=== PATIENT | female | born 1940 | race Caucasian/White ===

== ENCOUNTER 2019-10-20 09:27 | Outpatient (CLI) | payer MEDICARE, SELFPAY ==
--- NOTE | ~2019-10-20 | MM_ITS ---
EXAMINATION: MM screening carrie BI w ulcrecia HISTORY: Screening mammogram TECHNIQUE: Craniocaudal and mediolateral oblique 3-D tomosynthesis images were obtained and synthetic 2-D images were generated. CAD analysis was submitted and interpreted. COMPARISON: No prior mammogram is available for comparison at this institution. BREAST PARENCHYMAL COMPOSITION: There are scattered areas of fibroglandular density........ FINDINGS: There is no evidence of suspicious mass, calcification, or architectural distortion to sugg est malignancy in either breast. There has been no suspicious interval change. IMPRESSION: 1. No mammographic evidence of malignancy. 2. Recommend routine screening mammography in one year. BI-RADS Category 1: Negative Reviewed, dictated and finalized at location A.
== END 2019-10-20 09:28 | disposition home or self-care (01) ==
LOC: ANHIMG 09:32
PROVIDERS: PCP Internal Medicine; Visit Provider Internal Medicine
DX: Z12.31 Encounter for screening mammogram for malignant neoplasm of breast (principal)
CPT/HCPCS: 77063; 77067

== ENCOUNTER 2020-03-29 01:08 | Outpatient (CLI) | payer MEDICARE, SELFPAY ==
[2020-03-29 16:30] LABS: SARS-CoV-2 RNA PCR Negative
== END 2020-03-29 01:09 | disposition home or self-care (01) ==
LOC: ANHCOVIDDT 01:08
PROVIDERS: PCP Internal Medicine; Visit Provider Internal Medicine Gastroenterology
DX: Z01.812 Encounter for preprocedural laboratory examination (principal); Z20.828 Contact with and (suspected) exposure to other viral communicable diseases
CPT/HCPCS: 87635; C9803; U0003

== ENCOUNTER 2020-04-01 02:32 | Day surgery (SDC) | payer MEDICARE, SELFPAY ==
[2020-03-21 13:30] VITALS: BMI 24.5
[2020-04-01 07:23] VITALS: BP 146/82; PULSE 73; RESP 20; TEMP 37.1; O2SAT 98
[2020-04-01] MEDS: LACTATED RINGERS 1,000 ML 150 ML IV CONT (07:34)
--- NOTE | 2020-04-01 07:53 | P.HP_ITS ---
History of Present Illness History of Present Illness Consent: Risks, benefits, and alternatives have been discussed and questions answered. Patient agrees to proceed with procedure. Chief complaint: Hx Of Polyps Narrative: Roxanne Edgar is a 79 year old W female Referred for screening colonoscopy secondary history of colonic polyps. Last colonoscopy was over 5 years ago. Patient is asymptomatic and there is no family history of colon cancer. [facility] Surgical History Surgical History (Updated 04/01/20 @ 07:54 by Marcos Barclay MD) H/O hysterectomy for benign disease Status post surgical removal of malignant neoplasm of skin Social History Social History Living arrangements: with family Meds Home Medications and Allergies Home Medications Medication Instructions Recorded Confirmed Type levothyroxine 75 mcg PO DAILY 03/21/20 03/21/20 History Allergies Allergy/AdvReac Type Severity Reaction Status Date / Time No Known Allergies Allergy Verified 04/01/20 07:22 Vital Signs Vital Signs - 24 hr 04/01/20 07:23 Temperature 37.1 C Pulse Rate 73 Respiratory Rate 20 Blood Pressure 146/82 H Pulse Oximetry 98 Exam Const: Orientation/consciousness: patient oriented x3 Resp: Auscultation: clear to auscultation bilaterally Cardio: Rate: regular rate Rhythm: regular rhythm Heart sounds: no murmurs GI: GI Palp: Yes Soft to palpation, No Tenderness to palpation present (GI), Yes No hepatosplenomegaly present and No Palpable mass present Auscultation: normal bowel sounds Neuro: General: patient oriented x3 and no focal motor deficits Extrem: General: no pedal edema Assessment and Plan Additional Plan screening colonoscopy secondary history of colonic polyps
--- NOTE | 2020-04-01 08:00 | WPDANESEPPF ---
Anes - Initial Pre Proc Eval Procedure: Operation Date: 04/01/20 08:30 Proposed Procedures p Screening Colonoscopy - Marcos Barclay MD Date/Time: 04/01/20 08:00 Surgeon: Marcos Barclay MD Pre Op Diagnosis: Hx Of Polyps Patient Data Age: 79 Gender: F Height: 5 ft 4 in Weight: 64.1 kg Last Vital Signs Temp 98.7 F 04/01/20 07:23 Pulse 73 04/01/20 07:23 Resp 20 04/01/20 07:23 BP 146/82 H 04/01/20 07:23 Pulse Ox 98 04/01/20 07:23 Allergies Allergy/AdvReac Type Severity Reaction Status Date / Time No Known Allergies Allergy Verified 04/01/20 07:22 Home Medications Medication Instructions Recorded Confirmed Type levothyroxine 75 mcg PO DAILY 03/21/20 03/21/20 History Patient hx anesthesia problems: none Family hx anesthesia problems: none [facility] Past Medical History Medical History (Updated 04/01/20 @ 07:57 by Ernesto Lindsey MD) GERD (gastroesophageal reflux disease) Hypothyroid Surgical History Surgical History (Updated 04/01/20 @ 07:54 by Marcos Barclay MD) H/O hysterectomy for benign disease Status post surgical removal of malignant neoplasm of skin Social History Social History Living arrangements: with family Anes - Eval Final PreProcedure Day of Procedure 04/01/20 08:00 Patient weight: normal Heart: regular rate and rhythm Lungs: clear to auscultation Airway: Mallampati scale class II Neurological: alert and oriented Last oral intake: >/= 8 hours ASA classification: II Emergent: no Anesthetic plan: proceed Anesthesia type and monitoring: general GIVS and standard monitoring Informed Consent: The patient's anesthetic plan and its attendant risks and benefits were discussed with the patient/family/POA. Questions were solicited and answers provided to the satisfaction of the patient/family/POA.
[2020-04-01 08:55] VITALS: BP 120/74; PULSE 78; RESP 12; O2SAT 100
[2020-04-01 09:05] VITALS: BP 114/68; PULSE 75; RESP 18; O2SAT 100
[2020-04-01 09:15] VITALS: BP 122/66; PULSE 76; RESP 21; O2SAT 100
== END 2020-04-01 09:35 | disposition home or self-care (01) ==
PROVIDERS: PCP Internal Medicine; Visit Provider Internal Medicine Gastroenterology
PROC: 0DJD8ZZ Inspection of Lower Intestinal Tract, Via Natural or Artificial Opening Endoscopic (ICD-10-PCS; CPT 45378; principal; 2020-04-01 08:30)
DX: Z12.11 Encounter for screening for malignant neoplasm of colon (principal); K21.9 Gastro-esophageal reflux disease without esophagitis; E03.9 Hypothyroidism, unspecified; Z85.828 Personal history of other malignant neoplasm of skin; D12.2 Benign neoplasm of ascending colon; D12.5 Benign neoplasm of sigmoid colon; K57.30 Diverticulosis of large intestine without perforation or abscess without bleeding; K64.4 Residual hemorrhoidal skin tags
CPT/HCPCS: 45380; 45385; 88305; J2704; J7120

== ENCOUNTER 2020-12-09 07:42 | Outpatient (CLI) | payer MEDICARE, SELFPAY ==
--- NOTE | ~2020-12-09 | MM_ITS ---
EXAMINATION: MM screening carrie BI w lucrecia HISTORY: Screening mammogram TECHNIQUE: Craniocaudal and mediolateral oblique 3-D tomosynthesis images were obtained and synthetic 2-D images were generated. CAD analysis was submitted and interpreted. COMPARISON: 10/20/2019, 09/15/2018, 07/28/2017 BREAST PARENCHYMAL COMPOSITION: There are scattered areas of fibroglandular density. FINDINGS: Scattered benign-appearing calcifications are present. There is no evidence of suspicious m ass, calcification, or architectural distortion to suggest malignancy in either breast. There has bee n no suspicious interval change. IMPRESSION: 1. No mammographic evidence of malignancy. 2. Recommend routine screening mammography while the patient remains in good health. BI-RADS Category 2: Benign finding(s). Reviewed, dictated and finalized at location A. IMPRESSION: 1. No mammographic evidence of malignancy. 2. Recommend routine screening mammography while the patient remains in good he alth. BI-RADS Category 2: Benign finding(s).
--- NOTE | ~2020-12-09 | DEXA_ITS ---
Bone Density Report Name: Roxanne Edgar Age: 80 Sex: Female Ethnicity: White Date of : 1940 Indication: postmenopausal osteoporosis; monitoring treatment; height loss; hysterectomy; Referring Provider: SAMMIE, ALLISON Zhang Study: Bone densitometry was performed. Exam Date: December 09, 2020 Accession number: [id number] Bone Density: Region BMD T-score Z-score Classification AP Spine (L1, L2, L3) 0.713 -2.8 -0.1 Osteoporosis Femoral Neck (Left) 0.667 -1.6 0.7 Osteopenia Total Hip (Left) 0.728 -1.8 0.3 Osteopenia Total Hip Bilateral Avg 0.722 -1.9 0.3 Osteopenia Femoral Neck (Right) 0.597 -2.3 0.1 Osteopenia Total Hip (Right) 0.715 -1.9 0.2 Osteopenia World Health Organization criteria for BMD impression classify patients as: Normal (T-score at or above -1.0), Osteopenia (T-score between -1.0 and -2.5), or Osteoporosis (T-score at or below -2.5). 10-year Fracture Risk: FRAX not reported because: Some T-score for Spine Total or Hip Total or Femoral Neck at or below -2.5 Treated for osteoporosis Previous Exams: Region Exam Age BMD T-score BMD Change BMD Change Date g/cm2 vs Baseline vs Previous AP Spine(L1, L2, L3) 12/09/2020 80 0.713 -2.8 0.043(6.4%)# -0.006(-0.8%) 07/09/2016 76 0.719 -2.7 0.048(7.2%)# 0.017(2.5%) 03/05/2014 73 0.702 -2.9 0.031(4.6%)# -0.008(-1.1%)# 02/15/2012 71 0.710 -2.8 0.039(5.8%)# 0.012(1.7%)# 02/10/2010 69 0.698 -2.9 0.027(4.0%)* 0.023(3.5%)* 01/24/2008 67 0.675 -3.1 0.004(0.6%) -0.001(-0.2%) 05/27/2005 65 0.676 -3.1 0.005(0.8%) 0.005(0.8%) 01/17/2004 63 0.671 -3.2 Total Hip(Left) 12/09/2020 80 0.728 -1.8 0.014(2.0%)# -0.027(-3.5%) 09/15/2018 78 0.755 -1.5 0.041(5.7%)# -0.007(-0.9%) 07/09/2016 76 0.762 -1.5 0.047(6.6%)# 0.010(1.3%) 03/05/2014 73 0.752 -1.6 0.038(5.3%)# -0.021(-2.8%)# 02/15/2012 71 0.773 -1.4 0.059(8.2%)# 0.059(8.2%)# 02/10/2010 69 0.715 -1.9 0.000(0.0%) 0.013(1.9%) 01/24/2008 67 0.702 -2.0 -0.013(-1.8%) -0.021(-3.0%) 05/27/2005 65 0.723 -1.8 0.008(1.2%) 0.008(1.2%) 01/17/2004 63 0.714 -1.9 Total Hip(Right) 12/09/2020 80 0.715 -1.9 0.026(3.7%)# -0.012(-1.7%) 09/15/2018 78 0.727 -1.8 0.038(5.5%)# -0.013(-1.8%) 07/09/2016 76 0.740 -1.7 0.051(7.4%)# -0.004(-0.5%) 03/05/2014 73 0.744 -1.6 0.055(8.0%)# 0.005(0.7%)# 02/15/2012 71 0.739 -1.7 0.050(7.3%)# 0.042(6.1%)# 02/10/2010 69 0.697 -2.0 0.008(1.2%) 0.002(0.4%) 01/24/2008 67 0.694 -2.0 0.006(0.8%) 0.004(0.6%) 05/27/2005
== END 2020-12-09 07:43 | disposition home or self-care (01) ==
LOC: ANHIMG 07:46
PROVIDERS: PCP Internal Medicine; Visit Provider Internal Medicine
DX: Z12.31 Encounter for screening mammogram for malignant neoplasm of breast (principal); M81.0 Age-related osteoporosis without current pathological fracture; M85.851 Other specified disorders of bone density and structure, right thigh; M85.852 Other specified disorders of bone density and structure, left thigh
CPT/HCPCS: 77063; 77067; 77080

== ENCOUNTER 2022-01-21 08:50 | Outpatient (CLI) | payer MEDICARE, SELFPAY ==
--- NOTE | ~2022-01-21 | MM_ITS ---
EXAMINATION: MM screening carrie BI w lucrecia HISTORY: Screening mammogram TECHNIQUE: Craniocaudal and mediolateral oblique 3-D tomosynthesis images were obtained and synthetic 2-D images were generated. CAD analysis was submitted and interpreted. COMPARISON: 12/09/2020, 10/20/2019, 09/15/2018 bilateral screening mammogram examinations BREAST PARENCHYMAL COMPOSITION: There are scattered areas of fibroglandular density. FINDINGS: There is no evidence of suspicious mass, calcification, or architectural distortion to sugg est malignancy in either breast. There has been no suspicious interval change. IMPRESSION: 1. No mammographic evidence of malignancy. 2. Recommend routine screening mammography in one year. BI-RADS Category 1: Negative Reviewed, dictated and finalized at location A.
== END 2022-01-21 08:51 | disposition home or self-care (01) ==
LOC: ANHIMG 08:51
PROVIDERS: PCP Internal Medicine; Visit Provider Internal Medicine
DX: Z12.31 Encounter for screening mammogram for malignant neoplasm of breast (principal)
CPT/HCPCS: 77063; 77067

== ENCOUNTER 2022-11-18 08:38 | Outpatient (CLI) | payer MEDICARE, SELFPAY | END 2022-11-18 08:39 | disposition home or self-care (01) | LOC: ANHAUDIO 08:38 | PROVIDERS: PCP Internal Medicine; Visit Provider Otolaryngology | DX: H91.93 Unspecified hearing loss, bilateral (principal) | CPT/HCPCS: 92557; 92567 ==

== ENCOUNTER 2023-01-04 09:00 | Outpatient (RCR) | payer MEDICARE, SELFPAY | END 2023-01-04 23:59 | disposition home or self-care (01) | LOC: ANHAUDIO 09:00 | PROVIDERS: PCP Internal Medicine; Visit Provider Internal Medicine | DX: Z46.1 Encounter for fitting and adjustment of hearing aid (principal) | CPT/HCPCS: 99199; V5160; V5261 ==

== ENCOUNTER 2023-06-02 08:19 | Outpatient (CLI) | payer MEDICARE, SELFPAY ==
--- NOTE | ~2023-06-02 | MM_ITS ---
EXAMINATION: MM screening [facility] BI w lucrecia HISTORY: Screening mammogram TECHNIQUE: Craniocaudal and mediolateral oblique 3-D tomosynthesis images were obtained and synthetic 2-D images were generated. CAD analysis was submitted and interpreted. COMPARISON: 01/21/2022, 12/09/2020, 10/20/2019 BREAST PARENCHYMAL COMPOSITION:The breasts are heterogeneously dense, which may obscure small masses. FINDINGS: No suspicious mass, calcification, or architectural distortion are identified in either kamran ast to suggest malignancy. There has been no suspicious interval change. IMPRESSION: No mammographic evidence of malignancy. Recommend routine screening mammography in one year. BI-RADS Category 1: Negative Reviewed, dictated and finalized at location . DATION MAKER
--- NOTE | ~2023-06-02 | DEXA_ITS ---
Bone Density Report Name: BARRY DANIELS Age: 83 Sex: Female Ethnicity: White Date of : 1940 Indication: postmenopausal osteoporosis; height loss; hysterectomy; Referring Provider: SAMMIE, ALLISON Zhang Study: Bone densitometry was performed. Exam Date: June 02, 2023 Accession number: [id number] Bone Density: Region BMD T-score Z-score Classification AP Spine(L1, L2, L3) 0.811 -1.9 0.8 Osteopenia Femoral Neck (Left) 0.648 -1.8 0.6 Osteopenia Total Hip (Left) 0.720 -1.8 0.4 Osteopenia Femoral Neck (Right) 0.661 -1.7 0.7 Osteopenia Total Hip (Right) 0.703 -2.0 0.3 Osteopenia Total Hip Mean 0.712 -1.9 0.4 Osteopenia World Health Organization criteria for BMD impression classify patients as: Normal (T-score at or above -1.0), Osteopenia (T-score between -1.0 and -2.5), or Osteoporosis (T-score at or below -2.5). 10-year Fracture Risk(1): Major Osteoporotic Fracture 15% Hip Fracture 4.2% Reported Risk Factors: [place] (), Neck BMD=0.648, BMI=24.9 (1) FRAX(R) Version 3.08. Fracture probability calculated for an untreated patient. Fracture probability may be lower if the patient has received treatment. Previous Exams: Region Exam Age BMD T-score BMD Change BMD Change Date g/cm2 vs Baseline vs Previous AP Spine (L1-L3) 06/02/2023 83 0.811 -1.9 0.109 (15.5%)* 0.097 (13.6%)* 12/09/2020 80 0.713 -2.8 0.012 (1.7%) -0.006 (-0.8%) 07/09/2016 76 0.719 -2.7 0.017 (2.5%) 0.017 (2.5%) 03/05/2014 73 0.702 -2.9 Total Hip(Left) 06/02/2023 83 0.720 -1.8 -0.032 (-4.2%) -0.008 (-1.1%) 12/09/2020 80 0.728 -1.8 -0.024 (-3.1%) -0.027 (-3.5%) 09/15/2018 78 0.755 -1.5 0.003 (0.4%) -0.007 (-0.9%) 07/09/2016 76 0.762 -1.5 0.010 (1.3%) 0.010 (1.3%) 03/05/2014 73 0.752 -1.6 Total Hip(Right) 06/02/2023 83 0.703 -2.0 -0.041 (-5.5%) -0.012 (-1.6%) 12/09/2020 80 0.715 -1.9 -0.029 (-3.9%) -0.012 (-1.7%) 09/15/2018 78 0.727 -1.8 -0.017 (-2.3%) -0.013 (-1.8%) 07/09/2016 76 0.740 -1.7 -0.004 (-0.5%) -0.004 (-0.5%) 03/05/2014 73 0.744 -1.6 *Denotes significance at 95% confidence level, LSC for AP Spine = 0.022 g/cm2, LSC for Total Hip = 0.027 g/cm2 Clinical Information Provided by Patient: Has used the following medications: Vitamin D, Calcium Has the following medical conditions: Hysterectomy Patient maximum height was 64 Menopause Age: 44 Does not regularly consume dairy products Drinks caffeinate
== END 2023-06-02 08:20 | disposition home or self-care (01) ==
LOC: ANHIMG 08:23
PROVIDERS: PCP Internal Medicine; Visit Provider Internal Medicine
DX: Z12.31 Encounter for screening mammogram for malignant neoplasm of breast (principal); M81.0 Age-related osteoporosis without current pathological fracture; M85.89 Other specified disorders of bone density and structure, multiple sites
CPT/HCPCS: 77063; 77067; 77080